=== PATIENT | female | born 1985 ===

== ENCOUNTER 2017-12-16 09:14 | Day surgery (SDC) | payer OTHER ==
--- NOTE | 2017-12-16 11:55 | CP.SDSHP ---
Same Day Surgery H & P - History Proposed Procedure: US guided FNA of right thyroid nodule Pre-Op Diagnosis: Right thyroid nodule - Allergies Allergies: Allergies No Known Allergies Allergy (Unverified 12/16/17 11:19) - Physical Exam Mental Status: Alert & Oriented x3 Neuro: WNL Heart: WNL - Impression Impression: Pt with a 2.8 cm solid right thyroid nodule. Plan US guided FNA. Pt. Evaluated Today:Candidate for Anesthesia & Procedure: No Short Stay Discharge - Short Stay Discharge Admitting Diagnosis/Reason for Visit: R THYROID NODULE-E04.1 Disposition: HOME/ ROUTINE
--- NOTE | 2017-12-16 11:56 | PCM.SURG1 ---
Surgeon's Initial Post Op Note - Surgeon's Notes Surgeon: Lawrence Ferguson MD [employer] Trainee: NONE Type of Anesthesia: Local Pre-Operative Diagnosis: Thyroid nodule Operative Findings: US showed a solid 2.8 cm right thyroid nodule. Plan US guided FNA. Post-Operative Diagnosis: Thyroid nodule Operation Performed: US guided FNA of right thyroid nodule Specimen/Specimens Removed: 25 g FNA x 5 passes Estimated Blood Loss: EBL {In ML}: 0 Blood Products Given: N/A Drains Used: No Drains Post-Op Condition: Fair Date of Surgery/Procedure: 12/16/17 Time of Surgery/Procedure: 11:55
--- NOTE | 2017-12-18 11:37 | US ---
PROCEDURE: Date of Procedure: 12/16/2017 PROCEDURE: 1. Ultrasound guided FNA of right thyroid nodule, CPT 53491 2. Ultrasound guidance for FNA, 92496 Medications: 3cc 1% Lidocaine HISTORY: Enlarged right thyroid nodule. TECHNIQUE: Following informed consent and procedure time-out, a limited ultrasound patient's neck confirmed the presence of a 2.3cm complex right thyroid nodule which is predominantly solid. After the patient's neck was prepped and draped in the usual sterile fashion, the skin was anesthetized with 1% lidocaine. Ultrasound-guided fine needle aspiration was then performed of the dominant right thyroid nodule. A total of 5 passes were made into the nodule with 25 gauge needle under ultrasound guidance. The FNA specimen was sent for routine pathology. Post biopsy ultrasound showed no hematoma. IMPRESSION: Ultrasound-guided FNA of the dominant right thyroid nodule.
== END 2017-12-16 12:30 | disposition home or self-care (01) ==
LOC: C.SPRAD 09:14
PROVIDERS: ATTEND Radiology Vascular & Interventional Radiology
DX: C73 Malignant neoplasm of thyroid gland (principal); E04.1 Nontoxic single thyroid nodule

== ENCOUNTER 2018-01-22 05:37 | Day surgery (SDC) | payer OTHER ==
[2018-01-20 07:56] VITALS: BMI 30.2
[2018-01-22 06:34] VITALS: BP 114/79; PULSE 81; RESP 18; TEMP 97.3; O2SAT 98
[2018-01-22] MEDS ORDERED: Absorbable Gelatin Sponge Size 100 ONE (07:17)
[2018-01-22] MEDS ORDERED: Lidocaine/Epinephrine 1% 1:100000 10 ML IJ ONE (07:18)
[2018-01-22] MEDS ORDERED: Bupivacaine HCl 0.25% PF (30 ml) Inj ONE (07:18)
[2018-01-22] MEDS ORDERED: ePHEDrine 50 mg/ml Inj ONE (07:27)
[2018-01-22] MEDS ORDERED: Midazolam 2 MG/2 ML VIAL ONE (07:27)
[2018-01-22] MEDS ORDERED: Succinylcholine Chloride 20 mg/ml Syr (5 ml) IV ONE (07:27)
[2018-01-22] MEDS ORDERED: Phenylephrine 10 mg/ml Inj ONE (07:27)
[2018-01-22] MEDS ORDERED: Rocuronium 10 mg/ml (5 ml) ONE (07:27)
[2018-01-22] MEDS ORDERED: Propofol 10 mg/ml Inj (20 ML) ONE (07:27)
[2018-01-22] MEDS ORDERED: Propofol 10 mg/ml 1,000 MG/100 ML VIAL ONE ×2 (07:41)
[2018-01-22] MEDS ORDERED: ceFAZolin 1 gm in NS 0 GM/0 ML BAG IVPB ONE (08:00)
== END 2018-01-22 08:30 | disposition home or self-care (01) ==
LOC: C.PAT 05:37 → C.SDS 05:37 → EDSTATUS 07:30 → C.SDS 08:30
PROVIDERS: ATTEND Surgery Surgical Critical Care
DX: C73 Malignant neoplasm of thyroid gland (principal); Z53.8 Procedure and treatment not carried out for other reasons
CPT/HCPCS: 10022; 36415; 86850; 86900; J1885; J2001; J2370